=== PATIENT | female | born 1985 | race Caucasian/White ===

== ENCOUNTER → 2018-01-21 15:24 | Outpatient (CLI) | payer OTHER, SELFPAY ==
[2018-01-21 17:15] LABS: Add Manual Diff / Slide Review NO; Basophils Percent Auto 0.5 % (0-2); Eosinophils Percent Auto 2.5 % (2-4); Hematocrit 37.4 % (36-46); Hemoglobin 12.9 g/dL (12.0-16.0); Lymphocytes Percent Auto 26.7 % (25-40); Mean Corpuscular HGB Conc 34.5 % (30-36); Mean Corpuscular Volume 89.8 fL (80-100); Monocytes Percent Auto 6.5 % (3-14); Neutrophils Absolute Auto 4100 /uL (3000-5900); Neutrophils Percent Auto 63.8 % (50-75); Platelet Count 272 X10^3/uL (150-400); Red Blood Cell Count 4.17 X10^6/uL (4.0-5.2); Red Cell Distribution Width 12.2 % (11.6-14.8); White Blood Cell Count 6.4 X10^3/uL (4.5-11.0)
[2018-01-21 17:22] LABS: Alanine Aminotransferase 27 IU/L (9-52); Albumin 4.1 g/dL (3.5-5.0); Albumin Globulin Ratio 1.5 (1.0-2.8); Alkaline Phosphatase 48 U/L (38-126); Aspartate Aminotransferase 20 IU/L (14-36); BUN Creatinine Ratio 12.5 (6-22); Bilirubin Total 0.5 mg/dL (0.2-1.3); Blood Urea Nitrogen 10 mg/dL (7-17); Calcium 9.4 mg/dL (8.4-10.2); Carbon Dioxide 27 mmol/L (22-32); Chloride 102 mmol/L (98-107); Estimated Glomerular Filt Rate > 60.0 mL/min (>60); Globulin 2.8 g/dL (1.7-4.1); Glucose 86 mg/dL (70-100); HEMOLYSIS < 15 (0-50); Potassium 3.6 mmol/L (3.4-5.1); Sodium 139 mmol/L (137-145); Total Protein 6.9 g/dL (6.3-8.2)
[2018-01-21 17:51] LABS: TSH w/ Reflex to FT4 1.45 uIU/mL (0.47-4.68)
== END ==
PROVIDERS: Family Provider Nurse Practitioner Family; PCP Family Medicine; Visit Provider Nurse Practitioner Family
DX: F32.9 Major depressive disorder, single episode, unspecified (principal); F41.9 Anxiety disorder, unspecified
CPT/HCPCS: 36415; 80053; 84443; 85025

== ENCOUNTER → 2018-03-01 14:00 | Outpatient (CLI) | payer OTHER, SELFPAY | PROVIDERS: Family Provider Nurse Practitioner Family; PCP Family Medicine | DX: Z23 Encounter for immunization (principal) | CPT/HCPCS: 90471; 90682 ==

== ENCOUNTER → 2018-12-07 10:44 | Outpatient (CLI) | payer OTHER, SELFPAY ==
[2018-12-07 12:21] LABS: D Dimer < 200 ng/mL (<230)
[2018-12-07 12:35] LABS: Add Manual Diff / Slide Review NO; Basophils Absolute Auto 0 /uL (0-100); Basophils Percent Auto 0.4 % (0-2); Eosinophils Absolute Auto 300 /uL (0-450); Eosinophils Percent Auto 4.2 % (2-4); Hematocrit 42.4 % (36-46); Hemoglobin 14.4 g/dL (12.0-16.0); Lymphocytes Absolute Auto 1500 /uL (1100-4500); Lymphocytes Percent Auto 20.1 % (25-40); Mean Corpuscular Hemoglobin 30.5 PG (26-34); Mean Corpuscular Volume 89.6 fL (80-100); Monocytes Absolute Auto 400 /uL (0-900); Monocytes Percent Auto 5.9 % (3-14); Neutrophils Absolute Auto 5200 /uL (1500-7000); Neutrophils Percent Auto 69.4 % (50-75); Platelet Count 290 X10^3/uL (150-400); Red Blood Cell Count 4.73 X10^6/uL (4.0-5.2); Red Cell Distribution Width 12.2 % (11.6-14.8); White Blood Cell Count 7.5 X10^3/uL (4.5-11.0)
[2018-12-07 14:04] LABS: Thyroid Stimulating Hormone 2.45 uIU/mL (0.47-4.68)
== END ==
PROVIDERS: PCP Family Medicine; Visit Provider Hospitalist
DX: R06.00 Dyspnea, unspecified (principal)
CPT/HCPCS: 36415; 84443; 85025; 85379

== ENCOUNTER → 2019-03-21 14:55 | Outpatient (CLI) | payer OTHER, SELFPAY | PROVIDERS: PCP Family Medicine | DX: Z23 Encounter for immunization (principal) | CPT/HCPCS: 90471; 90682 ==

== ENCOUNTER 2019-05-24 11:53 | Emergency (ER) | payer OTHER, SELFPAY ==
[2019-05-24 12:01] VITALS: BP 151/89; PULSE 74; RESP 24; TEMP 36.6; O2SAT 100
[2019-05-24] MEDS: MORPHINE 2 MG/ML INJ IV (12:25)
[2019-05-24] MEDS: ONDANSETRON 4 MG/2 ML INJ IV (12:26)
[2019-05-24] MEDS: SODIUM CHLORIDE 0.9% 1,000 ML 1000 ML IV (12:26)
--- NOTE | 2019-05-24 12:44 | ED.ABDPAIN ---
HPI - Abdominal Pain <CHOLO Mendes - Last Filed: 05/24/19 22:19> General Chief Complaint: Abdominal Pain Stated Complaint: lower right quadrant discomfort,nausea,chills Time Seen by Provider: 05/24/19 12:10 Source: patient Mode of arrival: Ambulatory Limitations: no limitations History of Present Illness HPI narrative: This is a 33-year-old female, nonsmoker, who presents to ED with chief complain of right quadrant pain for last 1 week and she describes as doll constant aches. Patient had nausea, vomiting and loose stool associated with this. Patient reports Wednesday was worse with abdominal pain and now it has radiated to right upper quadrant as well. Patient reports somewhat improvement in her symptoms yesterday temporary. Patient reports decreased appetite. Nausea had resolved after Wednesday and she has been having loose stool about 2-3 times a day and worse 2 days ago. Patient denies fever but reports chills. LMP about a week ago for 3 days and light. Patient denies urinary symptoms but frequency without increasing hydration. Patient denies hematuria, dysuria, urgency. Patient denies history of ovarian cyst or unusual vaginal discharge. Patient rates pain as 4/10 at this time. Last eating at 9:30 a.m.. Related Data Home Medications Medication Instructions Recorded Confirmed cetirizine 10 mg capsule 10 mg PO DAILY PRN 12/07/18 03/15/19 norethindrone-ethin estradiol 1 tab PO DAILY 05/24/19 05/24/19 [Necon 0.5/35 (28)] Previous Rx's Medication Instructions Recorded lorazepam 0.5 mg tablet 0.5 mg PO BID PRN #30 tab 01/21/18 fluticasone propionate 50 1 spray NASAL DAILY #16 gram 12/07/18 mcg/actuation nasal spray,suspension albuterol sulfate 90 mcg/actuation 2 puff INHALATION Q6H PRN #8 gram 03/15/19 aerosol inhaler ondansetron 4 mg PO Q6-8H PRN #7 tab 05/24/19 sertraline 50 mg tablet 50 mg PO DAILY #30 tab 05/24/19 Allergies Allergy/AdvReac Type Severity Reaction Status Date / Time No Known Drug Allergies Allergy Verified 05/24/19 12:04 Review of Systems <CHOLO Mendes - Last Filed: 05/24/19 22:19> Review of Systems Narrative: General: Reports chills. Denies fever, fatigue, malaise, sweats. HEENT: Denies sinus pain, ear pain, sore throat, difficulty swallowing, dizziness. Respiratory: Denies dyspnea, cough, wheezing, hemoptysis, sputum. Cardiovascular: Denies chest pain, palpitations, orthopnea, edema. Gastrointestinal: See HPI : Denies dysuria, frequency, incontinence, hematuria, urinary retention. Musculoskeletal: Denies weakness, joint pain or bony pain. Skin: Denies rash, skin lesions, or other. Neurologic: Denies weakness, headache, numbness, change in speech, confusion, seizures, incoordination. Psychiatric: No concerning psychosocial issues. 12-point review of systems is negative except for those stated above. Patient History <CHOLO Mendes - Last Filed: 05/24/19 22:19> Social History Smoking Status: Never smoker Smoking Status: Never smoker alcohol intake frequency: 0-2 drinks per day Substance Use Type: does not use Exam <CHOLO Mendes - Last Filed: 05/24/19 22:19> Narrative Exam Narrative: GEN: Alert, oriented x 3, well appearing and nourished, and in no acute distress. Head: Normal cephalic, atraumatic. No scalp or temporal tenderness, palpable mass or rash. EYES: Pupils are equal, round, and reactive to light and accommodation. Extraocular muscles are intact bilaterally. There is no subconjunctival hemorrhage, exudate and sclera non-icteric. ENT: Bilateral auditory canals and tympanic membranes clear. Hearing grossly intact. Nose without bleeding, purulent discharge or deviation. Facial sinuses nontender to palpate. Mucous membrane moist, no mucosal lesion. Throat without erythema, tonsillar hypertrophy or exudate. Uvula in midline, airway patent. Neck: Trachea in midline. No JVD, non-tender without lymphadenopathy. No masses or thyroid megaly. Supple, non-tender and no meningeal signs. CARDIAC: Normal regular rate and rhythm without murmurs, gallops, or rubs. No chest wall tenderness. No peripheral edema, cyanosis or pallor. Capillary refill is less than 2 seconds. RESPIRATORY: Lungs are clear to auscultate bilaterally. No cough, wheezes, rales, or rhonchi. No stridor, respiratory distress, increase work of breathing, or accessary muscle used. ABD: Abdomen soft, mild tender in right quadrants and non-distended. No Dawson's sign. No guarding or rebound tenderness to palpate. Bowel sounds are normal in all 4 quadrants. There is no palpable masses or organomegaly. EXT: Full painless ROM of all extremities with no loss of sensation, strength, effusion or edema. SKIN: Warm, dry, normal color for patient. No erythema, lesions or rash over visible areas. BACK: Nontender without deformity or crepitance. No flank tenderness. NEUROLOGICAL: Alert and oriented to place, time and person. Sensation and motor function intact bilaterally. No facial droops, dysphasia. PSYCHIATRIC: Good judgement and reason, without hallucinations, abnormal affect or abnormal behaviors during the examination. Initial Vital Signs Initial Vital Signs: Vital Signs Temperature 97.9 F 05/24/19 12:01 Pulse Rate 74 05/24/19 12:01 Respiratory Rate 24 05/24/19 12:01 Blood Pressure 151/89 H 05/24/19 12:01 Pulse Oximetry 100 05/24/19 12:01 <Leola Nogueira DO - Last Filed: 05/25/19 07:25> Initial Vital Signs Initial Vital Signs: Vital Signs Temperature 97.9 F 05/24/19 12:01 Pulse Rate 74 05/24/19 12:01 Respiratory Rate 24 05/24/19 12:01 Blood Pressure 151/89 H 05/24/19 12:01 Pulse Oximetry 100 05/24/19 12:01 Scores <CHOLO Mendes - Last Filed: 05/24/19 22:19> GCS Kanu coma scale eye opening: Spontaneous [place] coma scale verbal response: Orientated Kanu coma scale motor response: Obey commands Kanu coma scale total score: 15 Course <CHOLO Mendes - Last Filed: 05/24/19 22:19> Orders Ordered: Discontinued Medications Sodium Chloride (Normal Saline 0.9%) 1,000 mls @ 1,000 mls/hr IV BOLUS ONE Stop: 05/24/19 13:15 Last Infusion: 05/24/19 13:48 Dose: 0 mls/hr Documented by: Admin: 05/24/19 12:26 Dose: 1,000 mls/hr Documented by: JONATHAN Morphine Sulfate (Morphine) 2 mg IV NOW ONE Stop: 05/24/19 12:19 Last Admin: 05/24/19 12:25 Dose: 2 mg Documented by: JONATHAN Ondansetron HCl (Zofran) 4 mg IV NOW ONE Stop: 05/24/19 12:17 Last Admin: 05/24/19 12:26 Dose: 4 mg Documented by: JONATHAN Vital Signs Vital signs: Vital Signs - 8 hr 05/24/19 14:28 Pulse Rate 63 Respiratory Rate 16 Blood Pressure [Left Arm] 132/70 Pulse Oximetry 99 <Leola Nogueira DO - Last Filed: 05/25/19 07:25> Orders Ordered: Discontinued Medications Sodium Chloride (Normal Saline 0.9%) 1,000 mls @ 1,000 mls/hr IV BOLUS ONE Stop: 05/24/19 13:15 Last Infusion: 05/24/19 13:48 Dose: 0 mls/hr Documented by: Admin: 05/24/19 12:26 Dose: 1,000 mls/hr Documented by: JONATHAN Morphine Sulfate (Morphine) 2 mg IV NOW ONE Stop: 05/24/19 12:19 Last Admin: 05/24/19 12:25 Dose: 2 mg Documented by: JONATHAN Ondansetron HCl (Zofran) 4 mg IV NOW ONE Stop: 05/24/19 12:17 Last Admin: 05/24/19 12:26 Dose: 4 mg Documented by: JONATHAN Vital Signs Vital signs: Vital Signs - 8 hr 05/24/19 14:28 Pulse Rate 63 Respiratory Rate 16 Blood Pressure [Left Arm] 132/70 Pulse Oximetry 99 MDM - Abdominal Pain <CHOLO Mendes - Last Filed: 05/24/19 22:19> Differential Diagnosis Differential diagnosis: Likely abdominal pain, acute appendicitis, gastroenteritis and other (Ovarian cyst) Medical Records Attestation: I reviewed the patient's medical records. Lab Data Attestation: I reviewed the patient's lab results. Result diagrams: 05/24/19 12:47 05/24/19 12:47 Labs: Lab Results 05/24/19 05/24/19 05/24/19 Range/Units 12:47 12:47 12:47 WBC 5.7 (4.5-11.0) X10^3/uL RBC 4.27 (4.0-5.2) X10^6/uL Hgb 13.1 (12.0-16.0) g/dL Hct 38.0 (36-46) % MCV 89.0 (80-100) fL MCH 30.6 (26-34) PG MCHC 34.4 (30-36) % RDW 12.4 (11.6-14.8) % Plt Count 266 (150-400) X10^3/uL Neut % (Auto) 67.9 (50-75) % Lymph % (Auto) 21.5 L (25-40) % [place] % (Auto) 6.4 (3-14) % Eos % (Auto) 3.6 (2-4) % Baso % (Auto) 0.6 (0-2) % Neut # (Auto) 3900 (6820-4899) /uL Lymph # (Auto) 1200 (2316-1598) /uL [place] # (Auto) 400 (0-900) /uL Eos # (Auto) 200 (0-450) /uL Baso # (Auto) 0 (0-100) /uL PT 12.1 (10.1-12.7) SECONDS INR 1.1 (0.9-1.3) APTT 31 (26.4-36.2) SECONDS Sodium 139 (137-145) mmol/L Potassium 4.3 (3.4-5.1) mmol/L Chloride 104 (98-107) mmol/L Carbon Dioxide 26 (22-32) mmol/L BUN 14 (7-17) mg/dL Creatinine 0.60 (0.52-1.04) mg/dL Estimated GFR > 60.0 (>60) mL/min BUN/Creatinine Ratio 23.3 H (6-22) Glucose 91 (70-100) mg/dL Calcium 8.7 (8.4-10.2) mg/dL Total Bilirubin 0.4 (0.2-1.3) mg/dL AST 29 (14-36) IU/L ALT 25 (<35) IU/L Alkaline Phosphatase 51 (38-126) U/L Total Protein 6.9 (6.3-8.2) g/dL Albumin 4.1 (3.5-5.0) g/dL Globulin 2.8 (1.7-4.1) g/dL Albumin/Globulin Ratio 1.5 (1.0-2.8) Lipase 41 (23-300) U/L Point of care testing: Point of Care Testing Test Results Negative Urine Dip Bedside Urine Glucose Negative Bedside Urine Bilirubin - Negative Bedside Urine Ketone - Negative Urine Specific [place] 1.015 Bedside Urine Occult Blood - Negative Bedside Urine pH 6.0 Bedside Urine Protein - Negative Bedside Urine Urobilinogen - Negative Bedside Urine Nitrite - Negative Bedside Urine Leukocytes - Negative Esterase MDM Narrative Medical decision making narrative: This is a 33-year-old female who presents to ED with nausea, vomiting, diarrhea which started about a week with right quadrant discomfort for last 2-3 days. Patient is afebrile but reported chills, denies urinary symptoms, unusual vaginal discharge. Last LMP 1 week ago. Patient's physical exam not consistent with appendicitis and nonspecific. Patient does not have rebound tenderness, psoas sign. Urine test is not indicating for infection and negative for urine hCG. Lab test today was unremarkable without leukocytosis. I discussed with the patient in details of physical exam findings and lab test results. Given days, imaging test was deferred at this time and patient agreed. Strict return precautions were discussed with the patient and consider imaging tests such as CT/US test as needed and patient verbalized understanding. Patient was medicated with IV fluid, Zofran and small dose dose of morphine which patient found improvement with her symptoms. No further questions were expressed at this time in patient discharged to home with Zofran ODT and advised to hydrate adequately. <Leola Nogueira, DO - Last Filed: 05/25/19 07:25> Lab Data Labs: Lab Results 05/24/19 05/24/19 05/24/19 Range/Units 12:47 12:47 12:47 WBC 5.7 (4.5-11.0) X10^3/uL RBC 4.27 (4.0-5.2) X10^6/uL Hgb 13.1 (12.0-16.0) g/dL Hct 38.0 (36-46) % MCV 89.0 (80-100) fL MCH 30.6 (26-34) PG MCHC 34.4 (30-36) % RDW 12.4 (11.6-14.8) % Plt Count 266 (150-400) X10^3/uL Neut % (Auto) 67.9 (50-75) % Lymph % (Auto) 21.5 L (25-40) % [place] % (Auto) 6.4 (3-14) % Eos % (Auto) 3.6 (2-4) % Baso % (Auto) 0.6 (0-2) % Neut # (Auto) 3900 (3529-8022) /uL Lymph # (Auto) 1200 (6790-5368) /uL [place] # (Auto) 400 (0-900) /uL Eos # (Auto) 200 (0-450) /uL Baso # (Auto) 0 (0-100) /uL PT 12.1 (10.1-12.7) SECONDS INR 1.1 (0.9-1.3) APTT 31 (26.4-36.2) SECONDS Sodium 139 (137-145) mmol/L Potassium 4.3 (3.4-5.1) mmol/L Chloride 104 (98-107) mmol/L Carbon Dioxide 26 (22-32) mmol/L BUN 14 (7-17) mg/dL Creatinine 0.60 (0.52-1.04) mg/dL Estimated GFR > 60.0 (>60) mL/min BUN/Creatinine Ratio 23.3 H (6-22) Glucose 91 (70-100) mg/dL Calcium 8.7 (8.4-10.2) mg/dL Total Bilirubin 0.4 (0.2-1.3) mg/dL AST 29 (14-36) IU/L ALT 25 (<35) IU/L Alkaline Phosphatase 51 (38-126) U/L Total Protein 6.9 (6.3-8.2) g/dL Albumin 4.1 (3.5-5.0) g/dL Globulin 2.8 (1.7-4.1) g/dL Albumin/Globulin Ratio 1.5 (1.0-2.8) Lipase 41 (23-300) U/L Point of care testing: Point of Care Testing Test Results Negative Urine Dip Bedside Urine Glucose Negative Bedside Urine Bilirubin - Negative Bedside Urine Ketone - Negative Urine Specific [place] 1.015 Bedside Urine Occult Blood - Negative Bedside Urine pH 6.0 Bedside Urine Protein - Negative Bedside Urine Urobilinogen - Negative Bedside Urine Nitrite - Negative Bedside Urine Leukocytes - Negative Esterase Discharge Plan Departure Patient Disposition: Home Clinical Impression: Gastroenteritis Abdominal pain Qualifiers: Abdominal location: unspecified location Qualified Code(s): R10.9 - Unspecified abdominal pain Discharge Date/Time: 05/24/19 14:37 Instructions: DI for Viral Gastroenteritis -- Adult, DI for Abdominal Pain-Adult Activity Restrictions/Additional Instructions: You have been diagnosed with [right quadrant discomfort with nausea vomiting and diarrhea. Your blood tests, urine test and physical exam are benign for appendicitis today. Your electrolytes are normal and there is no elevation in white counts. You felt improved with IV hydration, Zofran and pain medications while in ED.]. What to do: *Take your medications as directed. Zofran has been transmitted to [facility] in [place]. *Follow up with your primary care provider in 2-3 days, call for an appointment. Let them know you were seen in the ED and that we asked you to be seen in follow up. *Return to ED if you have any new, worsening, or concerning symptoms, such as [fever, worsening pain in abdomen specially right lower quadrant, worsening pain with movements, unable to tolerate fluids or medications, chest pain, breathing difficulty, or any acute concerns please return to ED for re-evaluation with repeat blood test and imaging test]. Prescriptions: New ondansetron 4 mg tablet,disintegrating 4 mg PO Q6-8H PRN (Reason: nausea and vomiting) Qty: 7 RF: 0 No Action albuterol sulfate 90 mcg/actuation HFA aerosol inhaler 2 puff INHALATION Q6H PRN (Reason: wheezing) Qty: 8 RF: 0 sertraline 50 mg tablet 50 mg PO DAILY Qty: 30 RF: 0 lorazepam 0.5 mg tablet 0.5 mg PO BID PRN (Reason: anxiety) Qty: 30 RF: 0 Zyrtec 10 mg capsule 10 mg PO DAILY PRN (Reason: Allergy Symptoms) RF: 0 fluticasone propionate [Flonase Allergy Relief] 50 mcg/actuation spray,suspension 1 spray NASAL DAILY Qty: 16 RF: 0 Necon 0.5/35 (28) 0.5-35 mg-mcg tablet 1 tab PO DAILY RF: 0 Referrals: Ginny Del Angel DO [Primary Care Provider] - Stand Alone Forms: School Release Note, Work Release Note
[2019-05-24 12:57] LABS: Add Manual Diff / Slide Review NO; Basophils Absolute Auto 0 /uL (0-100); Basophils Percent Auto 0.6 % (0-2); Eosinophils Absolute Auto 200 /uL (0-450); Eosinophils Percent Auto 3.6 % (2-4); Hemoglobin 13.1 g/dL (12.0-16.0); Lymphocytes Absolute Auto 1200 /uL (1100-4500); Lymphocytes Percent Auto 21.5 % (25-40); Mean Corpuscular HGB Conc 34.4 % (30-36); Mean Corpuscular Hemoglobin 30.6 PG (26-34); Monocytes Absolute Auto 400 /uL (0-900); Monocytes Percent Auto 6.4 % (3-14); Neutrophils Absolute Auto 3900 /uL (1500-7000); Neutrophils Percent Auto 67.9 % (50-75); Platelet Count 266 X10^3/uL (150-400); Red Blood Cell Count 4.27 X10^6/uL (4.0-5.2); Red Cell Distribution Width 12.4 % (11.6-14.8); White Blood Cell Count 5.7 X10^3/uL (4.5-11.0)
[2019-05-24 13:06] LABS: INR 1.1 (0.9-1.3); Prothrombin Time 12.1 SECONDS (10.1-12.7)
[2019-05-24 13:08] LABS: PTT Partial Thromboplastin Tim 31 SECONDS (26.4-36.2)
[2019-05-24 13:13] LABS: Alanine Aminotransferase 25 IU/L (<35); Albumin 4.1 g/dL (3.5-5.0); Albumin Globulin Ratio 1.5 (1.0-2.8); Alkaline Phosphatase 51 U/L (38-126); Aspartate Aminotransferase 29 IU/L (14-36); BUN Creatinine Ratio 23.3 (6-22); Bilirubin Total 0.4 mg/dL (0.2-1.3); Blood Urea Nitrogen 14 mg/dL (7-17); Calcium 8.7 mg/dL (8.4-10.2); Carbon Dioxide 26 mmol/L (22-32); Chloride 104 mmol/L (98-107); Estimated Glomerular Filt Rate > 60.0 mL/min (>60); Globulin 2.8 g/dL (1.7-4.1); Glucose 91 mg/dL (70-100); HEMOLYSIS < 15 (0-50); Lipase 41 U/L (23-300); Potassium 4.3 mmol/L (3.4-5.1); Sodium 139 mmol/L (137-145); Total Protein 6.9 g/dL (6.3-8.2)
[2019-05-24 14:28] VITALS: BP 132/70; PULSE 63; RESP 16; O2SAT 99
== END 2019-05-24 14:37 | disposition home or self-care (01) ==
PROVIDERS: Emergency Provider Nurse Practitioner Family; PCP Family Medicine
DX: K52.9 Noninfective gastroenteritis and colitis, unspecified (principal); R10.9 Unspecified abdominal pain
CPT/HCPCS: 36415; 80053; 81003; 81025; 83690; 85025; 85610; 85730; 96361; 96374; 96375; 99282; 99284; J2270; J2405

== ENCOUNTER → 2019-08-07 14:39 | Outpatient (CLI) | payer OTHER, SELFPAY ==
[2019-08-07 15:23] LABS: Influenza A - CEPHEID Flu A NEGATIVE (NEGATIVE); Influenza B - CEPHEID Flu B NEGATIVE (NEGATIVE)
== END ==
PROVIDERS: PCP Family Medicine; Visit Provider Nurse Practitioner
DX: R50.9 Fever, unspecified (principal)
CPT/HCPCS: 87502

== ENCOUNTER → 2020-03-14 | Outpatient (CLI) | payer OTHER, SELFPAY | PROVIDERS: PCP Family Medicine; Referring Provider Internal Medicine; Visit Provider Internal Medicine | DX: Z23 Encounter for immunization (principal) | CPT/HCPCS: 90471; 90686 ==

== ENCOUNTER → 2020-06-21 14:38 | Outpatient (CLI) | payer OTHER, SELFPAY ==
[2020-06-21] MEDS: COVID-19 VACC(MODERNA-1)/PF 100 MCG/0.5 ML VIAL IM (14:57)
== END ==
PROVIDERS: PCP Family Medicine; Visit Provider Internal Medicine
DX: Z23 Encounter for immunization (principal)
CPT/HCPCS: 0011A; 91301

== ENCOUNTER → 2020-07-18 12:51 | Outpatient (CLI) | payer OTHER, SELFPAY ==
[2020-07-18] MEDS: COVID-19 VACC #2, MRNA(MOD) 100 MCG/0.5 ML VIAL IM (12:58)
== END ==
PROVIDERS: PCP Family Medicine; Visit Provider Internal Medicine
DX: Z23 Encounter for immunization (principal)
CPT/HCPCS: 0012A; 91301

== ENCOUNTER → 2021-03-20 | Outpatient (CLI) | payer OTHER, SELFPAY | PROVIDERS: PCP Family Medicine; Referring Provider Internal Medicine; Visit Provider Internal Medicine | DX: Z23 Encounter for immunization (principal) | CPT/HCPCS: 90471; 90682 ==

== ENCOUNTER → 2021-04-15 09:30 | Outpatient (CLI) | payer OTHER, SELFPAY ==
[2021-04-15 10:02] LABS: COVID19 -Nasal RAPID Negative (Negative)
== END ==
PROVIDERS: PCP Family Medicine; Visit Provider Nurse Practitioner Family
DX: Z20.822 Contact with and (suspected) exposure to COVID-19 (principal)
CPT/HCPCS: 87635

== ENCOUNTER → 2021-04-25 15:08 | Outpatient (CLI) | payer OTHER, SELFPAY ==
[2021-04-25] MEDS: COVID-19 VACC #3, MRNA(MOD) 50 MCG/0.25 ML VIAL IM (15:12)
== END ==
PROVIDERS: PCP Family Medicine; Visit Provider Internal Medicine
DX: Z23 Encounter for immunization (principal)
CPT/HCPCS: 0013A; 91301

== ENCOUNTER → 2021-06-05 12:11 | Outpatient (CLI) | payer OTHER, SELFPAY ==
[2021-06-05 12:40] LABS: COVID19 -Nasal RAPID Negative (Negative)
== END ==
PROVIDERS: PCP Family Medicine; Referring Provider Physician Assistant; Visit Provider Physician Assistant
DX: Z20.822 Contact with and (suspected) exposure to COVID-19 (principal)
CPT/HCPCS: 87635

== ENCOUNTER → 2021-08-08 07:09 | Outpatient (CLI) | payer OTHER, SELFPAY ==
[2021-08-08 09:40] LABS: Alanine Aminotransferase 29 IU/L (<35); Albumin 4.2 g/dL (3.5-5.0); Albumin Globulin Ratio 1.4 (1.0-2.8); Alkaline Phosphatase 59 U/L (38-126); Aspartate Aminotransferase 35 IU/L (14-36); BUN Creatinine Ratio 14.3 (6-22); Bilirubin Total 0.5 mg/dL (0.2-1.3); Blood Urea Nitrogen 10 mg/dL (7-17); Carbon Dioxide 29 mmol/L (22-32); Chloride 103 mmol/L (98-107); Estimated Glomerular Filt Rate > 60.0 mL/min (>60); Glucose 124 mg/dL (70-100); HEMOLYSIS < 15 (0-50); Potassium 4.4 mmol/L (3.4-5.1); Sodium 137 mmol/L (137-145); Total Protein 7.2 g/dL (6.3-8.2)
[2021-08-08 10:11] LABS: TSH w/ Reflex to FT4 1.72 uIU/mL (0.47-4.68)
== END ==
PROVIDERS: PCP Family Medicine; Referring Provider Family Medicine; Visit Provider Family Medicine
DX: E66.01 Morbid (severe) obesity due to excess calories (principal); Z68.41 Body mass index [BMI] 40.0-44.9, adult
CPT/HCPCS: 36415; 80053; 84443

== ENCOUNTER → 2021-08-12 07:08 | Outpatient (CLI) | payer OTHER, SELFPAY ==
[2021-08-12 08:56] LABS: Hemoglobin A1C% w Est Avg Glu 5.8 % (4.0-6.0)
== END ==
PROVIDERS: PCP Family Medicine; Referring Provider Family Medicine; Visit Provider Family Medicine
DX: R73.9 Hyperglycemia, unspecified (principal)
CPT/HCPCS: 36415; 83036

== ENCOUNTER → 2022-04-03 17:12 | Outpatient (CLI) | payer OTHER, SELFPAY | PROVIDERS: PCP Family Medicine; Referring Provider Internal Medicine; Visit Provider Internal Medicine | DX: Z23 Encounter for immunization (principal) | CPT/HCPCS: 90471; 90686 ==

== ENCOUNTER → 2022-05-13 11:48 | Outpatient (CLI) | payer OTHER, SELFPAY ==
[2022-05-13 12:37] LABS: Influenza A - CEPHEID Flu A NEGATIVE (NEGATIVE); Influenza B - CEPHEID Flu B NEGATIVE (NEGATIVE); Respiratory Syncytial Virus Negative (Negative)
[2022-05-13 13:01] LABS: COVID-19 CEPHEID 4-PLEX PCR Negative (Negative)
== END ==
PROVIDERS: PCP Family Medicine; Visit Provider Nurse Practitioner Family
DX: R05.9 Cough, unspecified (principal)
CPT/HCPCS: 0241U

== ENCOUNTER → 2022-10-22 07:24 | Outpatient (CLI) | payer OTHER, SELFPAY ==
[2022-10-22 09:33] LABS: Influenza A - CEPHEID Flu A NEGATIVE (NEGATIVE); Influenza B - CEPHEID Flu B NEGATIVE (NEGATIVE); Respiratory Syncytial Virus Negative (Negative)
[2022-10-22 09:34] LABS: COVID-19 CEPHEID 4-PLEX PCR Negative (Negative)
== END ==
PROVIDERS: PCP Family Medicine; Visit Provider Nurse Practitioner Family
DX: J02.9 Acute pharyngitis, unspecified (principal); J06.9 Acute upper respiratory infection, unspecified
CPT/HCPCS: 0241U; 36415; 86318; 87070

== ENCOUNTER → 2022-10-22 07:54 | Outpatient (CLI) | payer OTHER, SELFPAY ==
[2022-10-22 09:10] LABS: Monotest Negative (Negative)
== END ==
PROVIDERS: PCP Family Medicine; Referring Provider Nurse Practitioner Family; Visit Provider Nurse Practitioner Family
DX: J02.9 Acute pharyngitis, unspecified (principal)
CPT/HCPCS: 36415; 86318

== ENCOUNTER → 2023-04-09 16:13 | Outpatient (CLI) | payer OTHER, SELFPAY | PROVIDERS: PCP Family Medicine; Referring Provider Family Medicine; Visit Provider Family Medicine | DX: Z23 Encounter for immunization (principal) | CPT/HCPCS: 90471; 90686 ==

== ENCOUNTER → 2023-11-02 12:17 | Outpatient (CLI) | payer OTHER, SELFPAY ==
[2023-11-02 15:37] LABS: Appearance Urine UA CLEAR; Bilirubin Urine UA NEGATIVE (NEGATIVE); Color Urine UA YELLOW; Glucose Urine UA NEGATIVE (Negative); Ketones Urine UA NEGATIVE (NEGATIVE); Leukocyte Esterase Urine UA 1+ (NEGATIVE); Nitrite Urine UA NEGATIVE (Negative); Occult Blood Urine UA 3+ (Negative); Protein Urine UA NEGATIVE (Negative); Urobilinogen Urine UA 0.2 E.U./dL (0.2)
[2023-11-02 15:41] LABS: pH Urine UA 6.5 (4.5-8.0)
[2023-11-02 16:21] LABS: Bacteria Urine Few (2-10); RBC Urine 1-5/HPF (0-5/HPF); Squamous Epithelial Cell Urine 0-1 /HPF (0-5/HPF); Urine Volume 10mL (spun); WBC Urine 1-5/HPF (0-5/HPF)
[2023-11-02 16:22] LABS: Culture Indicated Urine Specimen Cultured
[2023-11-02 17:53] LABS: Creatinine Urine Random 32.29 mg/dL; Protein (Total) Urine Random 17 mg/dL (0-12); Protein Creatinine Ratio Urine 0.52 GRAM/24H
== END ==
PROVIDERS: PCP Family Medicine; Referring Provider Family Medicine; Visit Provider Family Medicine
DX: R73.03 Prediabetes (principal); R03.0 Elevated blood-pressure reading, without diagnosis of hypertension
CPT/HCPCS: 81001; 82570; 84156; 87086

== ENCOUNTER → 2023-11-05 09:15 | Outpatient (CLI) | payer OTHER, SELFPAY ==
[2023-11-05 11:11] LABS: Prolactin 124.5 ng/mL (3.0-18.6)
[2023-11-05 11:11] LABS: Prolactin 120.9 ng/mL (3.0-18.6)
== END ==
PROVIDERS: PCP Family Medicine; Visit Provider Family Medicine
DX: Z39.1 Encounter for care and examination of lactating mother (principal); R53.83 Other fatigue; D64.9 Anemia, unspecified
CPT/HCPCS: 84146; 84443

== ENCOUNTER → 2024-02-01 13:51 | Outpatient (CLI) | payer OTHER, SELFPAY ==
[2024-02-01 15:38] LABS: Hemoglobin A1C% w Est Avg Glu 5.3 % (4.0-6.0)
== END ==
PROVIDERS: PCP Family Medicine; Referring Provider Family Medicine; Visit Provider Family Medicine
DX: R73.03 Prediabetes (principal)
CPT/HCPCS: 36415; 83036

== ENCOUNTER → 2024-04-18 14:53 | Outpatient (CLI) | payer OTHER, SELFPAY | PROVIDERS: PCP Family Medicine; Referring Provider Internal Medicine; Visit Provider Internal Medicine | DX: Z23 Encounter for immunization (principal) | CPT/HCPCS: 90471; 90656 ==

== ENCOUNTER → 2025-03-09 07:02 | Outpatient (CLI) | payer OTHER, SELFPAY ==
[2025-03-09 08:14] LABS: Add Manual Diff / Slide Review NO; Hematocrit 38.1 % (36-46); Hemoglobin 12.9 g/dL (12.0-16.0); Lymphocytes Absolute Auto 1300 /uL (1100-4500); Mean Corpuscular HGB Conc 33.8 % (30-36); Mean Corpuscular Hemoglobin 29.7 PG (26-34); Mean Corpuscular Volume 88.1 fL (80-100); Platelet Count 268 X10^3/uL (150-400)
[2025-03-09 08:33] LABS: Hemoglobin A1C% w Est Avg Glu 5.9 % (4.0-6.0)
[2025-03-09 08:46] LABS: Alanine Aminotransferase 24 IU/L (<35); Albumin 4.2 g/dL (3.5-5.0); Albumin Globulin Ratio 1.6 (1.0-2.8); Alkaline Phosphatase 55 U/L (38-126); Blood Urea Nitrogen 14 mg/dL (7-17); Calcium 9.1 mg/dL (8.4-10.2); Carbon Dioxide 25 mmol/L (22-32); Chloride 103 mmol/L (98-107); Cholesterol 156 mg/dL (140-199); Estimated Glomerular Filt Rate > 60 mL/min (>60); Globulin 2.6 g/dL (1.7-4.1); Glucose 125 mg/dL (70-99); HDL Cholesterol 52 mg/dL (40-60); HEMOLYSIS < 15 (0-50); Potassium 4.7 mmol/L (3.4-5.1); Sodium 136 mmol/L (137-145); Total Protein 6.8 g/dL (6.3-8.2); Triglycerides 67 mg/dL (35-150)
[2025-03-09 09:16] LABS: TSH w/ Reflex to FT4 1.80 uIU/mL (0.47-4.68)
== END ==
PROVIDERS: PCP Family Medicine; Referring Provider Family Medicine; Visit Provider Family Medicine
DX: O24.419 Gestational diabetes mellitus in pregnancy, unspecified control (principal); R79.89 Other specified abnormal findings of blood chemistry
CPT/HCPCS: 36415; 80053; 80061; 83036; 84146; 84443; 85025